=== PATIENT | male | born 1970 | race Caucasian/White ===

== ENCOUNTER 2018-02-11 21:48 | Emergency (ER) | payer SELFPAY ==
[2018-02-11] MEDS ORDERED: NS 1,000 ML IV ONE (21:52)
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
[2018-02-11] MEDS ORDERED: TDAP ADULT 0.5 ML INJ (BOOSTRIX) IM ONE (22:10)
[2018-02-11 23:06] VITALS: BP 141/78
== END 2018-02-11 23:04 | disposition home or self-care (01) ==
LOC: EDUNIT#
PROC: 0CQ1XZZ Repair Lower Lip, External Approach (ICD-10-PCS; principal; 2018-02-11)
PROC: 0CQ0XZZ Repair Upper Lip, External Approach (ICD-10-PCS; principal; 2018-02-11)
DX: S01.511A Laceration without foreign body of lip, initial encounter (principal); S02.5XXA Fracture of tooth (traumatic), initial encounter for closed fracture; Y93.55 Activity, bike riding; Y92.410 Unspecified street and highway as the place of occurrence of the external cause; V18.0XXA Pedal cycle driver injured in noncollision transport accident in nontraffic accident, initial encounter; F10.129 Alcohol abuse with intoxication, unspecified; Z23 Encounter for immunization